=== PATIENT | male | born 1945 | race Caucasian/White ===

== ENCOUNTER 2022-12-25 12:03 | Emergency (ER) | payer MEDICARE ==
[~2022-12-25] VITALS: Ht 165.1 cm; Wt 86.4 kg
[2022-12-25 12:06] VITALS: TEMP 97.8
[2022-12-25] MEDS ORDERED: CEPHALEXIN500 M1 PO (12:55)
[2022-12-25 13:15] VITALS: BP 110/68; PULSE 88
== END 2022-12-25 13:15 | disposition home or self-care (01) ==
LOC: COL.ER 12:03
DX: S41.112A Laceration without foreign body of left upper arm, initial encounter (principal); Z95.811 Presence of heart assist device; Z79.01 Long term (current) use of anticoagulants; Z88.0 Allergy status to penicillin; Z88.1 Allergy status to other antibiotic agents